=== PATIENT | female | born 1985 | race Caucasian/White ===

== ENCOUNTER 2018-05-08 12:25 | Emergency (ER) | payer SELFPAY ==
[2018-05-08 13:01] LABS: APPEARANCE,URINE CLOUDY (CLEAR); COLOR,URINE YELLOW (YELLOW); OCCULT BLOOD,URINE TR (NEGATIVE); PH URINE 5.5 (5.0 - 8.0); URINE HCG NEGATIVE (NEGATIVE); UROBILINOGEN URINE 0.2 Eu (0.2-1.0)
[2018-05-08] MEDS: NAPROXEN 250 MG TABLET PO ONE (13:31)
[2018-05-08] MEDS: CYCLOBENZAPRINE HCL 5 MG TABLET PO ONE (13:31)
--- NOTE | 2018-05-08 14:16 | ED Physician Documentation ---
Fall - HISTORIAN Historian: patient - HPI Stated Complaint: R neck, R shoulder pain Chief Complaint: Fall Additional Information: Fell 2 days ago while cleaning shower/tub. Hit right shoulder on wall. Hit Left scapula area on the faucet, she thinks. Landed in sitting position. No LOC. Has pain right neck and shoulder and sacrum. Previous surgery right humerus. No treatment. No other modifying factors or associated signs. Where: home Context: slipped - ROS CONST: no problems - PAST HX Past History: other (PCOS, endometriosis, anxiety) Allergies/Adverse Reactions: Allergies Allergy/AdvReac Type Severity Reaction Status Date / Time acetaminophen Allergy Mild nausea Verified 05/08/18 12:41 [From Darvocet-N 100] propoxyphene napsylate Allergy Mild nausea Verified 05/08/18 12:41 [From Darvocet-N 100] haloperidol [From Haldol] Allergy Abdominal Verified 05/08/18 12:41 Bloating ketorolac tromethamine Allergy Verified 05/08/18 12:41 [From Toradol] Home Medications: Ambulatory Orders Medication Instructions Recorded Alprazolam [Xanax] 0.5 mg PO BID PRN 05/08/18 - SOCIAL HX Smoking History: non-smoker - FAMILY HX Family History: no significant history - VITAL SIGNS Vital Signs: Vital Signs Temp Pulse Resp BP Pulse Ox 98.0 F 86 18 119/86 98 05/08/18 12:43 05/08/18 12:43 05/08/18 12:43 05/08/18 12:43 05/08/18 12:43 - REVIEWED ASSESSMENTS Nursing Assessment Reviewed: Yes Vitals Reviewed: Yes Progress - Progress Progress: Report Submission Date: May 08, 2018 1:36:03 PM CDT Patient Study Name: CORI VALENTIN Date: May 08, 2018 1:08:25 PM CDT Modality Type: DX Gender: F Description: SPINE : 81 Institution: [facility] Physician: JENNIFER DE PAZ - YO Sacrum and coccyx History: Status post fall AP and lateral projections of the sacrum and coccyx demonstrate the SI joints to be patent bilaterally. Sacral ala are intact. There is no evidence for acute fracture or dislocation. Impression: No osseous abnormality. Electronically signed on May 08, 2018 1:36:03 PM CDT by: Oumou Infante Report Submission Date: May 08, 2018 1:34:03 PM CDT Patient Study Name: CORI VALENTIN Date: May 08, 2018 1:00:22 PM CDT Modality Type: DX Gender: F Description: SHOULDER : 81 Institution: [facility] Physician: JENNIFER DE PAZ Right shoulder History: Pain after falling in the shower Three views of the right shoulder were obtained which demonstrate the presence of a medullary john traversing a healed fracture of the proximal humerus. No acute osseous abnormalities are noted. The acromioclavicular joint is intact. Impression: Medullary john traversing a healed fracture of the proximal right humerus. No evidence for acute fracture or dislocation. Electronically signed on May 08, 2018 1:34:03 PM CDT by: Oumou Infante eport Submission Date: May 08, 2018 2:12:43 PM CDT Patient Study Name: CORI VALENTIN Date: May 08, 2018 12:53:35 PM CDT Modality Type: DX Gender: F Description: SPINE : 81 Institution: [facility] Physician: JENNIFER DE PAZ Cervical spine History: Fell in the shower AP, lateral and 2 odontoid projections of the cervical spine demonstrate the dens to be intact. There is no prevertebral soft tissue swelling. Alignment is normal. Vertebral body height and intervertebral disc space height is maintained and spinous processes are intact. Impression: No evidence for acute fracture or dislocation. Electronically signed on May 08, 2018 2:12:43 PM CDT by: Oumou Infante ED Results Lab/Radiology - Lab Results Lab Results: Lab Results 05/08/18 12:50 Urine Color Yellow (YELLOW) Urine Appearance Cloudy H (CLEAR) Urine pH 5.5 (5.0 - 8.0) Ur Specific Norman 1.025 (1.010-1.030) Urine Protein Negative mg/dL mg/dL (NEGATIVE) Urine Ketones Negative mg/dL mg/dL (NEGATIVE) Urine Occult Blood Tr (NEGATIVE) Urine Nitrite Negative (NEGATIVE) Urine Bilirubin Negative (NEGATIVE) Urine Urobilinogen 0.2 Eu Eu (0.2-1.0) Ur Leukocyte Esterase 3+ H (NEGATIVE) Urine Glucose Negative mg/dL mg/dL (NEGATIVE) Urine HCG, Qual Negative (NEGATIVE) - Orders Orders: ED Orders Category Date Time Status C SPINE 2 OR 3 VIEWS [RAD] Stat Exams 05/08/18 Taken SACRUM & COCCYX 2 VIEW+ [RAD] Stat Exams 05/08/18 Taken SHOULDER 2 VIEWS OR MORE [RAD] Stat Exams 05/08/18 Taken UA MACRO DIP ONLY Routine Lab 05/08/18 12:50 Completed URINE CULTURE Routine Lab 05/08/18 12:50 Received URINE HCG Routine Lab 05/08/18 12:50 Completed Cyclobenzaprine HCl [Flexeril] Med 05/08/18 13:00 Discontinued 10 mg PO NOW ONE Naproxen [Naprosyn] Med 05/08/18 13:00 Discontinued 500 mg PO NOW ONE Fall Physical Exam - Physical Exam General Appearance: moderate distress Head: no obvious injury Neck: decreased ROM, limited ROM (2/2 pain), pain with neck movement Eye: lids & conjunct. nml ENT: nml external inspection, no oral injury Resp/CVS: no resp. distress Neuro: CN's nml as tested, sensation nml, motor nml Skin: color nml (except <2 cm purple ecchymosis left scapula), warm, dry Back: normal inspection, no CVA tenderness, no vertebral tenderness Extremities: atraumatic, pelvis stable, nml ROM (gait and stance) Joint: Nml gait/weight bearing Discharge Clincal Impression: Urinary tract infection Qualifiers: Urinary tract infection type: acute cystitis Hematuria presence: with hematuria Qualified Code(s): N30.01 - Acute cystitis with hematuria Cervical muscle strain Qualifiers: Encounter type: initial encounter Qualified Code(s): S16.1XXA - Strain of muscle, fascia and tendon at neck level, initial encounter Sacral contusion Qualifiers: Encounter type: initial encounter Qualified Code(s): S30.0XXA - Contusion of lower back and pelvis, initial encounter Contusion of scapula, left Qualifiers: Encounter type: initial encounter Qualified Code(s): S40.012A - Contusion of left shoulder, initial encounter Shoulder pain, acute Qualifiers: Laterality: right Qualified Code(s): M25.511 - Pain in right shoulder Referrals: Primary Doctor,No [Primary Care Provider] - 2 Days Condition: Good Disposition: 01 HOME, SELF-CARE Decision to Admit: NO Decision Time: 14:20
[2018-05-08 14:36] VITALS: BP 108/67
--- NOTE | 2018-05-08 14:54 | Diagnostic Imaging Report ---
JENNIFER DE PAZ [facility] [address] [facility] [id number] Report Submission Date: May 08, 2018 1:34:03 PM CDT Patient Study Name: CORI VALENTIN Date: May 08, 2018 1:00:22 PM CDT Modality Type: DX Gender: F Description: SHOULDER : 81 Institution: [facility] Physician: JENNIFER DE PAZ Right shoulder History: Pain after falling in the shower Three views of the right shoulder were obtained which demonstrate the presence of a medullary john traversing a healed fracture of the proximal humerus. No acute osseous abnormalities are noted. The acromioclavicular joint is intact. Impression: Medullary john traversing a healed fracture of the proximal right humerus. No evidence for acute fracture or dislocation. Electronically signed on May 08, 2018 1:34:03 PM CDT by: Oumou ZABALA
--- NOTE | 2018-05-08 14:54 | Diagnostic Imaging Report ---
JENNIFER DE PAZ [facility] [address] [facility] [address] [address] Report Submission Date: May 08, 2018 2:12:43 PM CDT Patient Study Name: CORI VALENTIN Date: May 08, 2018 12:53:35 PM CDT Modality Type: DX Gender: F Description: SPINE : 81 Institution: [facility] Physician: JENNIFER DE PAZ Cervical spine History: Fell in the shower AP, lateral and 2 odontoid projections of the cervical spine demonstrate the dens to be intact. There is no prevertebral soft tissue swelling. Alignment is normal. Vertebral body height and intervertebral disc space height is maintained and spinous processes are intact. Impression: No evidence for acute fracture or dislocation. Electronically signed on May 08, 2018 2:12:43 PM CDT by: Oumou ZABALA
--- NOTE | 2018-05-08 14:55 | Diagnostic Imaging Report ---
JENNIFER DE PAZ [facility] [address] [facility] [address] [address] Report Submission Date: May 08, 2018 1:36:03 PM CDT Patient Study Name: CORI VALENTIN Date: May 08, 2018 1:08:25 PM CDT Modality Type: DX Gender: F Description: SPINE : 81 Institution: [facility] Physician: JENNIFER DE PAZ Sacrum and coccyx History: Status post fall AP and lateral projections of the sacrum and coccyx demonstrate the SI joints to be patent bilaterally. Sacral ala are intact. There is no evidence for acute fracture or dislocation. Impression: No osseous abnormality. Electronically signed on May 08, 2018 1:36:03 PM CDT by: Oumou ZABALA
== END 2018-05-08 14:34 | disposition home or self-care (01) ==
LOC: ED 12:25
DX: N30.01 Acute cystitis with hematuria (principal); S16.1XXA Strain of muscle, fascia and tendon at neck level, initial encounter; S30.0XXA Contusion of lower back and pelvis, initial encounter; S40.012A Contusion of left shoulder, initial encounter; M25.511 Pain in right shoulder
CPT/HCPCS: 72040; 72220; 73030; 81002; 81025; 87086; 99284